=== PATIENT | female | born 1945 | race Caucasian/White ===

== ENCOUNTER → 2023-11-24 13:53 | Outpatient (REF) | payer MEDICARE, OTHER, SELFPAY | LOC: DHCBS MAIN 13:53 | PROVIDERS: ATTENDING PHYSICIAN Internal Medicine Cardiovascular Disease; FAMILY PHYSICIAN Family Medicine | DX: R07.89 Other chest pain (principal); I35.8 Other nonrheumatic aortic valve disorders | CPT/HCPCS: 93306 ==

== ENCOUNTER → 2024-01-26 15:56 | Outpatient (REF) | payer MEDICARE, OTHER, SELFPAY | LOC: HWRAD 15:56 | PROVIDERS: ATTENDING PHYSICIAN Internal Medicine Hematology & Oncology; FAMILY PHYSICIAN Family Medicine | DX: M81.8 Other osteoporosis without current pathological fracture (principal); C50.819 Malignant neoplasm of overlapping sites of unspecified female breast | CPT/HCPCS: 71250 ==

== ENCOUNTER 2024-10-06 04:11 | Emergency (ER) | payer MEDICARE, OTHER, SELFPAY ==
[2024-10-06 04:16] VITALS: BP 152/97; BMI 24.8
[2024-10-06] MEDS: NSS 1000 IV ×2 (04:40→06:15)
[2024-10-06 04:45] LABS: % Basophils 2.6 % (0-2); % Eosinophils 1.3 % (0-6); % Immature Granulocytes 0.5 % (0-0.5); % Lymphocytes 21.1 % (20.5-51.1); % Monocytes 5.9 % (1.7-9.3); % Neutrophils 68.6 % (42.2-75.2); Absolute Basophils 0.1 10^3/uL (0-0.2); Absolute Eosinophils 0.1 10^3/uL (0-0.7); Absolute Lymphocytes 0.8 10^3/uL (1.2-3.4); Absolute Monocytes 0.2 10^3/uL (0.1-0.6); Absolute Neutrophils 2.7 10^3/uL (1.4-6.5); Hematocrit 34.5 % (37.0-47.0); Hemoglobin 11.5 g/dL (12.0-16.0); Mean Corp Hgb Conc. 33.3 g/dL (33.0-37.0); Mean Corpuscular Hgb 34.7 pg (27.0-31.0); Mean Corpuscular Volume 104.2 fL (81.0-99.0); Mean Platelet Volume 9.2 fL (7.4-10.4); Nucleated Red Blood Cells % 0 %; Platelet Count 278 10^3/uL (130-400); Red Blood Cell Count 3.31 10^6/uL (4.20-5.40); White Blood Cell Count 3.9 10^3/uL (4.8-10.8)
[2024-10-06 04:53] LABS: ALT (SGPT) 21 U/L (0-35); AST (SGOT) 41 U/L (14-36); Albumin 4.5 g/dl (3.5-5.0); Alkaline Phosphatase 54 U/L (38-126); Blood Urea Nitrogen 22 mg/dl (7-17); Calcium 8.9 mg/dl (8.4-10.2); Carbon Dioxide 26 mmol/L (22-30); Chloride 96 mmol/L (98-107); Estimated Creatinine Clearance 36 ml/min; Glucose 135 mg/dl (70-99); Potassium 4.3 mmol/L (3.5-5.1); Sodium 133 mmol/L (135-145); Total Bilirubin 0.4 mg/dl (0.2-1.3); Total Protein 7.1 g/dl (6.3-8.2); eGFR > 60.00
--- NOTE | 2024-10-06 04:54 | ED.GENMED ---
History of Present Illness
<Be Lezama MD - Last Filed: 10/06/24 04:59>
General
Chief Complaint: Weakness
Source: patient and spouse
Exam Limitations: none
Time Seen by Provider: 10/06/24 04:13
Nursing documentation reviewed up to this point in time: agreed with
History of Present Illness
History of Present Illness:
79-year-old female with a past medical history of hypertension, multiple sclerosis, hypothyroidism who presents to the emergency room with her for evaluation of generalized weakness. Patient reports that she has been sick for the past week
with 'a virus.' She says she has had a runny nose and a loose cough and generalized fatigue. She says that she saw her primary doctor on Tuesday for these issues and was started on steroids; she also was having some dizziness that they felt was
viral related and she was told to take Dramamine. She says that these medications have not helped and that tonight she felt very weak and could not even walk down the stairs because her legs felt weak underneath her. Came to the ER for evaluation.
She says she did have a minor fall with head strike no loss of consciousness. Aside from above symptoms she says she does have some mild shortness of breath. She denies any nausea, vomiting, diarrhea. No abdominal pain. No chest pain. No
palpitations. She denies any other complaints. She is not on any blood thinners.
Past History
<Be Lezama MD - Last Filed: 10/06/24 04:59>
Past History
ED Past Medical History: Other (ms)
ED Past Surgical History: Gynecological and Other (lumpectomy)
Social History
Tobacco: Non-smoker
Alcohol: Occasional
Drug: None
Personal:
Living: with family
Review of Systems
<Be Lezama MD - Last Filed: 10/06/24 04:59>
Review of Systems
All Other Systems: ROS reviewed and negative except as documented in HPI and ROS
Constitutional: Reports fatigue; Denies fever or chills
EENT: Reports runny nose; Denies sore throat
Respiratory: Reports cough and trouble breathing
Cardiac: Denies chest pain, diaphoresis or palpitations
ABD/GI: Denies abdominal pain, nausea, vomiting or diarrhea
: Denies flank pain
Musculoskeletal: Denies neck pain or back pain
Neurological: Reports dizzy; Denies headache, weakness or numbness
Phy Exam
<Be Lezama MD - Last Filed: 10/06/24 04:59>
Physical Exam
Physical Exam:
General: Awake, alert, oriented x3; no acute distress
Head: Normocephalic, atraumatic
Eyes: Conjunctiva normal, EOMI
Throat: Airway intact, dry mucous membranes
Neck: Trachea midline, no cervical spine tenderness
Lungs: Clear to auscultation bilaterally, no wheezing, rales, rhonchi; occasional cough
Heart: Regular rate and rhythm, no murmurs, gallops, or rubs
Abd: Soft, non distended, nontender
Neuro: Cranial nerves grossly intact, speech fluid, motor and sensory intact all extremities
Skin: no rash
Extremities: Atraumatic, no edema in extremities, equal pulses in all extremities
Scores
<Be Lezama MD - Last Filed: 10/06/24 04:59>
Heart Failure Risk
Heart Failure Risk Score: Not Applicable
Heart Score for Chest Pain Patients
STEMI patient?: Not applicable
Withdrawal Assessment of Alcohol
Withdrawal Assessment Completed?: Not applicable
Course
<Be Lezama MD - Last Filed: 10/06/24 04:59>
Orders/Labs/Results
Orders:
Orders
10/06/24 04:20
Electrocardiogram (*1) Urgent
Reason for Study: Fatigue / Weakness
EKG- Treatment ONCE
10/06/24 04:25
COVID-19 Antigen Urgent
Source: Nasal Swab
Complete Blood Count/With Diff Urgent
Comprehensive Metabolic Panel Urgent
Influenza A+B Rapid Molecular Urgent
ZENY Source: Nasal Swab
Specimen Description:
Date Specimen was Collected: 10/06/24
Time Specimen was Collected: 04:20
CR Chest - 2 Views Urgent
Comment:
Reason For Exam: weakness, eval for pna
10/06/24 04:36
CT Head W/o Iv Contrast Urgent
Comment:
Reason For Exam: fall with head strike
0.9% Sodium Chloride 1000 ml [Nss] 1,000 ml IV BOLUS
10/06/24 05:45
0.9% Sodium Chloride 1000 ml [Nss] 1,000 ml IV 125 mls/hr
10/06/24 06:18
Pt Eval And Treat Urgent
Activity Level: With Assistance
10/06/24 06:27
Urinalysis Reflex To Culture Urgent
Date Specimen was Collected: 10/06/24
Time Specimen was Collected: 04:20
Urine Microscopic Reflex Cult Urgent
Urine Culture Urgent
ZENY Source: U
Specimen Description:
Date Specimen was Collected: 10/06/24
Time Specimen was Collected: 04:20
Abnormal Lab Results
10/06/24 10/06/24
04:25 06:27
WBC 3.9 L 10^3/uL
(4.8-10.8)
RBC 3.31 L 10^6/uL
(4.20-5.40)
Hgb 11.5 L g/dL
(12.0-16.0)
Hct 34.5 L %
(37.0-47.0)
MCV 104.2 H fL
(81.0-99.0)
MCH 34.7 H pg
(27.0-31.0)
Absolute Lymphs (auto) 0.8 L 10^3/uL
(1.2-3.4)
Basophils % 2.6 H %
(0-2)
Sodium 133 L mmol/L
(135-145)
Chloride 96 L mmol/L
(98-107)
BUN 22 H mg/dl
(7-17)
Glucose 135 H mg/dl
(70-99)
AST 41 H U/L
(14-36)
Ur Occult Blood Reflex 1+ A
(Negative)
Leukocyte Esterase Rfl 2+ A
(Negative)
Urine WBC (Reflex) >100 A /HPF
(0-5)
Urine Bacteria (Reflex) Many A
(Negative)
10/06/24 04:25
10/06/24 04:25
Vital Signs
Initial and Last Documented VS:
Initial Vital Signs
Pulse Resp Pulse Ox
67 21 95
10/06/24 04:15 10/06/24 04:15 10/06/24 04:15
Last Documented Vital Signs
Temp Pulse Resp BP Pulse Ox
97.8 F 65 15 145/63 93
10/06/24 04:16 10/06/24 08:00 10/06/24 08:00 10/06/24 08:00 10/06/24 08:00
<Chencho Barron PA-C - Last Filed: 10/06/24 09:08>
Orders/Labs/Results
Orders:
Orders
10/06/24 04:20
Electrocardiogram (*1) Urgent
Reason for Study: Fatigue / Weakness
EKG- Treatment ONCE
10/06/24 04:25
COVID-19 Antigen Urgent
Source: Nasal Swab
Complete Blood Count/With Diff Urgent
Comprehensive Metabolic Panel Urgent
Influenza A+B Rapid Molecular Urgent
ZENY Source: Nasal Swab
Specimen Description:
Date Specimen was Collected: 10/06/24
Time Specimen was Collected: 04:20
CR Chest - 2 Views Urgent
Comment:
Reason For Exam: weakness, eval for pna
10/06/24 04:36
CT Head W/o Iv Contrast Urgent
Comment:
Reason For Exam: fall with head strike
0.9% Sodium Chloride 1000 ml [Nss] 1,000 ml IV BOLUS
10/06/24 05:45
0.9% Sodium Chloride 1000 ml [Nss] 1,000 ml IV 125 mls/hr
10/06/24 06:18
Pt Eval And Treat Urgent
Activity Level: With Assistance
10/06/24 06:27
Urinalysis Reflex To Culture Urgent
Date Specimen was Collected: 10/06/24
Time Specimen was Collected: 04:20
Urine Microscopic Reflex Cult Urgent
Urine Culture Urgent
ZENY Source: U
Specimen Description:
Date Specimen was Collected: 10/06/24
Time Specimen was Collected: 04:20
Abnormal Lab Results
10/06/24 10/06/24
04:25 06:27
WBC 3.9 L 10^3/uL
(4.8-10.8)
RBC 3.31 L 10^6/uL
(4.20-5.40)
Hgb 11.5 L g/dL
(12.0-16.0)
Hct 34.5 L %
(37.0-47.0)
MCV 104.2 H fL
(81.0-99.0)
MCH 34.7 H pg
(27.0-31.0)
Absolute Lymphs (auto) 0.8 L 10^3/uL
(1.2-3.4)
Basophils % 2.6 H %
(0-2)
Sodium 133 L mmol/L
(135-145)
Chloride 96 L mmol/L
(98-107)
BUN 22 H mg/dl
(7-17)
Glucose 135 H mg/dl
(70-99)
AST 41 H U/L
(14-36)
Ur Occult Blood Reflex 1+ A
(Negative)
Leukocyte Esterase Rfl 2+ A
(Negative)
Urine WBC (Reflex) >100 A /HPF
(0-5)
Urine Bacteria (Reflex) Many A
(Negative)
10/06/24 04:25
10/06/24 04:25
Vital Signs
Initial and Last Documented VS:
Initial Vital Signs
Pulse Resp Pulse Ox
67 21 95
10/06/24 04:15 10/06/24 04:15 10/06/24 04:15
Last Documented Vital Signs
Temp Pulse Resp BP Pulse Ox
97.8 F 65 15 145/63 93
10/06/24 04:16 10/06/24 08:00 10/06/24 08:00 10/06/24 08:00 10/06/24 08:00
<Be Lezama MD - Last Filed: 10/06/24 04:59>
MDM/Problems Addressed
Differential Diagnosis Includes:
Viral syndrome, pneumonia, MS flare, dehydration
MDM/Problems Addressed:
79-year-old female presents for evaluation of increased weakness in the setting of recent viral URI symptoms. Hypertensive otherwise normal vitals. Physical exam as above. Plan to send off labs including a CBC and a CMP, urinalysis. Swab for
COVID and flu. Check chest x-ray. Check an EKG. Check CT head given reported head strike. Will provide fluids as patient appears dehydrated on exam. Reassess after the above.
Chronic conditions affecting care:
MS
<Be Lezama MD - Last Filed: 10/06/24 04:59>
*Radiology
Radiology exam reviewed: preliminary read by ED provider and radiology read reviewed
*Pulse Oximetry
Patient hypoxic: no
*EKG
Interpreted by ED Provider?: Yes
Heart Rate: 63
Rate: normal
Rhythm: sinus
[place]: left axis deviation
Interval: normal interval
QRS Pattern: right bundle branch block
Ischemia: T-wave inversion
*Critical Care Note
Total Time (30-74mins, 75-104mins- exclusive of procedures): Not Applicable
Data Reviewed
Source: patient and spouse
<Chencho Barron PA-C - Last Filed: 10/06/24 09:08>
Update Note
Update Note:
Assumed care of patient upon signout. Patient was pending PT evaluation. She was hydrated here she ambulated well with PT and PT felt that she could go home. Will discharge home.
ED Attending Note
<Be Lezama MD - Last Filed: 10/06/24 04:59>
-
Portions of this chart may have been created with voice recognition software.� Occasional wrong word or��sound alike� substitutions may have occurred due to the inherent limitations of voice recognition software.
Discharge Plan
Departure
Patient Disposition: Home (Routine Discharge)
Date of Disposition: 10/06/24
Time of Disposition: 09:07
Patient with high blood pressure during this ER visit?: Yes
Discharge Problem:
Weakness, Acute dehydration, Acute UTI
Instructions: Urinary tract infections in adults, Generalized Weakness (DC), Dehydration in adults - ED discharge instructions
Prescriptions:
New
cephalexin 500 mg capsule
500 mg PO Q8H 5 Days Qty: 15 0RF
No Action
amlodipine 5 MG tablet
5 mg PO DAILY
baclofen 20 MG tablet
40 mg PO BID
cholecalciferol (vitamin D3) [Vitamin D3] 2,000 UNIT capsule
2,000 unit PO DAILY
levothyroxine 100 mcg Tablet
100 mcg PO DAILY
letrozole 2.5 mg Tablet
2.5 mg PO DAILY
losartan 100 mg Tablet
100 mg PO DAILY
dalfampridine 10 mg Tablet Extended Release 12 Hr
10 mg PO Q12H
Ibrance 100 mg Tablet
100 mg PO DAILY
Rx Instructions:
21 days off, 7 days off, then repeat
nebivolol 5 mg Tablet
5 mg PO DAILY
Referrals:
Candido Cleary MD [Family Provider] - Follow up in 2-3 days
Activity Restrictions/Additional Instructions:
Thank you for visiting the Emergency Department at [facility].
1. Please schedule a follow up appointment as directed. Call first thing tomorrow morning to make an appointment.
2. If indicated, please take your medications as instructed and indicated on discharge paperwork.
3. If any of your symptoms do not improve, or persist, or become more severe within 6-12 hours, please return to the emergency department for further care.
4. Please return to the emergency department if you develop a headache, neck pain/stiffness, fever greater than 100.4F, chest pain, shortness of breath, persistent nausea, vomiting, slurred speech, difficulty walking, numbness/tingling, weakness,
signs of infection or any other symptoms that are worrisome to you.
Please call [phone] if you have any questions.
Interventions
Interventions:
*Risk Screen - Suicide Last Done: 10/06/24 04:16
*General Assessment Last Done: 10/06/24 04:16
*Neglect/Abuse Screening Last Done: 10/06/24 04:16
ED- Fall Risk Assessment Last Done: 10/06/24 07:24
*ED COVID-19 Vaccine History Last Done: 10/06/24 04:16
ED- Cardiac Assessment Last Done: 10/06/24 04:21
ED- Neurological Assessment Last Done: 10/06/24 04:21
ED- Pulmonary Assessment Last Done: 10/06/24 04:21
Discharge Date and Time
Print Language: SWEDISH
[2024-10-06 05:01] LABS: COVID-19 Antigen Negative (Negative)
[2024-10-06 06:08] VITALS: BP 109/45
[2024-10-06 06:43] LABS: Urine Albumin Trace (Neg - Trace); Urine Bilirubin Negative (Negative); Urine Character Slightly Cloudy (Clear); Urine Color Straw; Urine Glucose Negative (Negative); Urine Ketone Negative (Negative); Urine Leukocyte 2+ (Negative); Urine Nitrite Negative (Negative); Urine Occult Blood 1+ (Negative); Urine Urobilinogen Negative (Neg - 1+)
[2024-10-06 07:00] VITALS: BP 141/61
[2024-10-06 07:06] LABS: Urine Amorphous Seen; Urine Bacteria Many (Negative); Urine Squamous Cell >30 /LPF (Few); Urine Urothelial Cell >30 /LPF (FEW); Urine White Cell >100 /HPF (0-5)
[2024-10-06 07:07] LABS: Urine Mucus Few
[2024-10-06 08:00] VITALS: BP 145/63
[2024-10-06 08:26] VITALS: BP 136/57
[2024-10-06 08:30] VITALS: BP 136/57; BP 145/63; PULSE 65; O2SAT 95
== END 2024-10-06 09:36 | disposition home or self-care (01) ==
LOC: EMR 04:11
PROVIDERS: EMERGENCY PHYSICIAN Emergency Medicine; FAMILY PHYSICIAN Internal Medicine
DX: R53.1 Weakness (principal); R05.9 Cough, unspecified; R09.89 Other specified symptoms and signs involving the circulatory and respiratory systems; R42 Dizziness and giddiness; N39.0 Urinary tract infection, site not specified; S09.90XA Unspecified injury of head, initial encounter; E86.0 Dehydration; W19.XXXA Unspecified fall, initial encounter; Z11.52 Encounter for screening for COVID-19; I45.10 Unspecified right bundle-branch block; G35 Multiple sclerosis; I10 Essential (primary) hypertension; E03.9 Hypothyroidism, unspecified; G43.909 Migraine, unspecified, not intractable, without status migrainosus; K21.9 Gastro-esophageal reflux disease without esophagitis; M19.90 Unspecified osteoarthritis, unspecified site; Z85.3 Personal history of malignant neoplasm of breast; Z85.42 Personal history of malignant neoplasm of other parts of uterus
CPT/HCPCS: 99285; 96360; 70450; 71046; 80053; 81003; 81015; 85025; 87086; 87502; 87811; 93005

== ENCOUNTER → 2025-01-25 13:51 | Outpatient (REF) | payer MEDICARE, OTHER, SELFPAY | LOC: HWRAD 13:51 | PROVIDERS: ATTENDING PHYSICIAN Internal Medicine Hematology & Oncology; FAMILY PHYSICIAN Internal Medicine | DX: M81.8 Other osteoporosis without current pathological fracture (principal); C50.819 Malignant neoplasm of overlapping sites of unspecified female breast | CPT/HCPCS: 71250 ==

== ENCOUNTER 2025-01-28 15:20 | Emergency (ER) | payer MEDICARE, OTHER, SELFPAY ==
[2025-01-28 15:31] VITALS: BP 188/80
[2025-01-28] MEDS: TYLENOL 650 MG PO (16:51)
--- NOTE | 2025-01-28 18:04 | ED.GENMED ---
History of Present Illness
General
Chief Complaint: Head Injury
Source: patient
Exam Limitations: none
Time Seen by Provider: 01/28/25 15:57
Nursing documentation reviewed up to this point in time: agreed with
History of Present Illness
History of Present Illness:
79-year-old female w/ hx MS, HTN presenting with for evaluation of head injury. Patient states she lost her footing earlier today in the bedroom and fell backwards, striking the back of her head on a sliding mirror door. Patient�s
was in the other room and quickly was at our side following fall. He denies any loss of conscious. Patient reports a headache and a neck pain since fall. There has been no vomiting. She denies any visual changes or dizziness. Patient�s said
she�s acting normally.
Patient denies pain in arms or legs. No fever, chills, chest pain, shortness or breath, cough, or urinary symptoms.
He does note that patient has been a little weaker today than usual, which he attributes to being very tired. He states this kind of weakness does occur intermittently with patient when she is worn down. He said that she if often unsteady on her
feet which is baseline for her.
No thinners
Past History
Past History
ED Past Medical History: Other (ms)
ED Past Surgical History: Gynecological and Other (lumpectomy)
Social History
Tobacco: Non-smoker
Alcohol: Occasional
Drug: None
Personal:
Living: with family
Review of Systems
Review of Systems
Allergies reviewed?: Yes
All Other Systems: ROS reviewed and negative except as documented in HPI and ROS
Phy Exam
Physical Exam
Physical Exam:
Vitals: Hypertensive, otherwise vital signs are stable. Afebrile
General: Patient is well appearing, no acute distress. Non toxic appearing.
Skin: Warm and dry, no rashes or lesions
Head: Normocephalic, atraumatic
Eyes: Sclera nonicteric. EOMs intact. Pupils equal round and reactive to light bilaterally. No nystagmus.
Throat: Protecting airway
Neck: Normal ROM, no cervical spine tenderness, no meningismus. Mild tenderness to left lateral neck/ upper trapezius.
Cardiac: Regular rate and rhythm, no murmurs.
Pulm: Normal respiratory effort, no wheezes, rales, rhonchi heard on exam
.
Abdomen: No abdominal tenderness.
Extremities: No evidence of cyanosis or edema. Bilateral upper and lower extremities atraumatic and nontender with full ROM.
Neuro: AAOx3. CN II-XII grossly intact on examination. No focal neurologic deficits. No facial droop or asymmetry. Normal finger to nose.
Psychiatric: Normal affect.
Course
Orders/Labs/Results
Orders:
Orders
01/28/25 15:34
CT Head W/o Iv Contrast Urgent
Comment:
Reason For Exam: head injury
01/28/25 15:48
CT Cervical Spine W/o Iv Contr Urgent
Comment:
Reason For Exam: neck pain after fall
01/28/25 16:44
Acetaminophen [Tylenol] 650 mg PO NOW STA
Vital Signs
Initial and Last Documented VS:
Initial Vital Signs
Temp Pulse Resp BP Pulse Ox
98.5 F 61 16 188/80 97
01/28/25 15:31 01/28/25 15:31 01/28/25 15:31 01/28/25 15:31 01/28/25 15:31
Last Documented Vital Signs
Temp Pulse Resp BP Pulse Ox
98.5 F 61 16 188/80 97
01/28/25 15:31 01/28/25 15:31 01/28/25 15:31 01/28/25 15:31 01/28/25 15:31
MDM/Problems Addressed
Differential Diagnosis Includes:
Not limited to: contusion, concussion, subdural hemorrhage, muscle strain, etc
MDM/Problems Addressed:
79 year-old female with history as documented presenting after head injury. No reports of LOC or vomiting. Vital and physical exam as above. Patient is A&O x 3 No focal neurologic deficits on exam. No obvious trauma to head or neck. She does have
mild tenderness to left lateral neck, although no true midline cervical spinal tenderness. Strength 5/5 in upper and lower extremities and equal. CT / cervical spine without acute traumatic injuries.
In regards to patient weakness � discussed work up in ED, including labs, UA, EKG, although the patient and decline and say this truly is not out of character for her. Patient has no infectious symptoms. Offered patient walker given history
of unsteady gait although she declines.
Ultimately � No evidence of traumatic injury following fall today. Unknown etiology of weakness today although possibilities include progression of disease, acute dehydration, viral illness, etc. She declines further workup. Advised patient to stay
well hydrated and follow with primary care/ neurology for further evaluation/management of MS and weakness. Very strict return precautions discussed. Patient and patients comfortable w/ plan.. All questions answer.
Chronic conditions affecting care:
MS, HTN
Acute Exacerbation and/or Progression of Chronic Illness:
Acutely hypertensive
*Radiology
Radiology exam reviewed: radiology read reviewed
*Pulse Oximetry
Patient hypoxic: no
*EKG
Interpreted by ED Provider?: NA
*Floorworker Interpretation
Rate: Floorworker- N/A
*Critical Care Note
Total Time (30-74mins, 75-104mins- exclusive of procedures): Not Applicable
ED Attending Note
-
Portions of this chart may have been created with voice recognition software.� Occasional wrong word or��sound alike� substitutions may have occurred due to the inherent limitations of voice recognition software.
Discharge Plan
Departure
Patient Disposition: Home (Routine Discharge)
Date of Disposition: 01/28/25
Time of Disposition: 17:32
Patient with high blood pressure during this ER visit?: Yes
Condition: Good
Covid-19: Not Applicable
Discharge Problem:
Head injury
Instructions: Head Injury in Adults (DC), BLOOD PRESSURE
Prescriptions:
No Action
amlodipine 5 MG tablet
5 mg PO DAILY
baclofen 20 MG tablet
40 mg PO BID
cholecalciferol (vitamin D3) [Vitamin D3] 2,000 UNIT capsule
2,000 unit PO DAILY
levothyroxine 100 mcg Tablet
100 mcg PO DAILY
letrozole 2.5 mg Tablet
2.5 mg PO DAILY
losartan 100 mg Tablet
100 mg PO DAILY
dalfampridine 10 mg Tablet Extended Release 12 Hr
10 mg PO Q12H
Ibrance 100 mg Tablet
100 mg PO DAILY
Rx Instructions:
21 days off, 7 days off, then repeat
nebivolol 5 mg Tablet
5 mg PO DAILY
cephalexin 500 mg capsule
500 mg PO Q8H 5 Days Qty: 15 0RF
Referrals:
Candido Cleary MD [Family Provider] - Follow up in 2-3 days
Activity Restrictions/Additional Instructions:
RETURN TO THE EMERGENCY DEPARTMENT ANY SEVERE HEADACHE OR NECK PAIN, CHANGES IN MENTAL STATUS, INTRACTABLE NAUSEA/VOMITING, SIGNIFICANT FATIGUE OR WEAKNESS, PERSISTENT DIZZINESS/LIGHTHEADEDNESS, WORSENING CURRENT SYMPTOMS, OR ANY OTHER CONCERNS
- As discussed�your CT imaging of your head and cervical spine showed no evidence of acute traumatic injury today. You may have sustained a mild concussion.
- You can take Tylenol as needed for pain. It is important stay well-hydrated and get plenty of rest
- Follow-up with your primary care for further evaluation/management to ensure that symptoms are improving
Monitor your symptoms closely and return to the emergency department with any acute worsening/new symptoms or any other concerns
Interventions
Interventions:
*Risk Screen - Suicide Last Done: 01/28/25 15:31
*General Assessment Last Done: 01/28/25 15:31
*Neglect/Abuse Screening Last Done: 01/28/25 15:48
*ED- Fall Risk Assessment Last Done: 01/28/25 15:48
*Nursing Disposition Last Done: 01/28/25 17:58
ED- Neurological Assessment Last Done: 01/28/25 15:48
Discharge Date and Time
Discharge Date/Time: 01/28/25 17:58
Print Language: GHANAIAN
== END 2025-01-28 17:58 | disposition home or self-care (01) ==
LOC: EMR 15:20
PROVIDERS: EMERGENCY PHYSICIAN Emergency Medicine; FAMILY PHYSICIAN Internal Medicine
DX: S09.90XA Unspecified injury of head, initial encounter (principal); M54.2 Cervicalgia; R51.9 Headache, unspecified; R53.1 Weakness; W01.198A Fall on same level from slipping, tripping and stumbling with subsequent striking against other object, initial encounter; G35 Multiple sclerosis; I10 Essential (primary) hypertension; K21.9 Gastro-esophageal reflux disease without esophagitis; M19.90 Unspecified osteoarthritis, unspecified site; E03.9 Hypothyroidism, unspecified; Z85.3 Personal history of malignant neoplasm of breast; Z85.42 Personal history of malignant neoplasm of other parts of uterus
CPT/HCPCS: 99284; 70450; 72125

== ENCOUNTER → 2025-07-19 10:53 | Outpatient (REF) | payer MEDICARE, OTHER, SELFPAY | LOC: RAD 10:53 | PROVIDERS: ATTENDING PHYSICIAN Internal Medicine Medical Oncology; FAMILY PHYSICIAN Internal Medicine | DX: M81.8 Other osteoporosis without current pathological fracture (principal); C50.819 Malignant neoplasm of overlapping sites of unspecified female breast | CPT/HCPCS: 71260; 74177; Q9967 ==